=== PATIENT | female | born 1945 | race Two or more races ===

== ENCOUNTER 2018-06-10 15:18 | Emergency (ER) | payer MEDICAID, OTHER ==
[~2018-06-10] VITALS: Ht 157.5 cm; Wt 61.2 kg
[~2018-06-10 15:18] MED LIST: ALP15OS OP; AML5T PO; ASPI1TAB19 PO; ATE50T PO; ATOR20TA PO; CITA10TA70 PO; DORZ2SOL18 EACHEYE; HYDR25TA4 PO; LATA0.0015 OP; LOSA-46 PO; METF-370 PO; OXYB5TAB24 PO
[2018-06-10 16:18] LABS: Basophils # (auto) 0.1 uL; Eosinophils # (auto) 0.3 uL; Eosinophils % (auto) 2.9 % (0.0-7.0); Hematocrit 43.5 % (36.0-46.0); Hemoglobin 14.4 g/dL (12.2-16.2); Lymphocytes # (auto) 2.7 uL; Lymphocytes % (auto) 26.9 % (10.0-50.0); Mean Corpuscular Volume 84.9 fL (80.0-100.0); Monocytes # (auto) 1.2 uL; Monocytes % (auto) 11.4 % (0.0-12.0); Neutrophils # (auto) 5.8 uL; Neutrophils % (auto) 57.8 % (37.0-80.0); Platelet Count (auto) 270 10^3/uL (140-450); Red Blood Cells 5.12 10^6/uL (4.0-5.20); Red Cell Distribution Width 16.1 % (11.8-14.3); White Blood Cell 10.1 10^3/uL (4.4-10.8)
[2018-06-10 16:30] LABS: Albumin 3.6 g/dL (3.4-5.0); Calcium 9.2 mg/dL (8.5-10.1); Magnesium 2.2 mg/dL (1.6-2.6); Potassium 3.6 mmol/L (3.5-5.1)
[2018-06-10 16:37] LABS: BUN/Creatinine Ratio 16.5; Bilirubin, Total 0.4 mg/dL (0.2-1.0); Total Protein 7.7 g/dL (6.4-8.2)
[2018-06-10 22:50] VITALS: BP 157/61
== END 2018-06-10 23:00 | disposition short-term general hospital (02) ==
LOC: EDBD 15:18 → ER 15:18
DX: I67.1 Cerebral aneurysm, nonruptured (principal); I48.0 Paroxysmal atrial fibrillation; R55 Syncope and collapse; R56.9 Unspecified convulsions; E11.9 Type 2 diabetes mellitus without complications; E78.00 Pure hypercholesterolemia, unspecified; I10 Essential (primary) hypertension; Z86.73 Personal history of transient ischemic attack (TIA), and cerebral infarction without residual deficits; Z90.49 Acquired absence of other specified parts of digestive tract
CPT/HCPCS: 36415; 70450; 71045; 80053; 83735; 84484; 85025; 93005; 94761; 99291